=== PATIENT | male | born 1995 | race Hispanic/Latino ===

== ENCOUNTER 2017-02-28 09:49 | Emergency (ER) | payer OTHER ==
[~2017-02-28] VITALS: Ht 172.7 cm; Wt 71.9 kg
[2017-02-28] MEDS ORDERED: MOTRIN600 MG PO (11:24)
[2017-02-28 11:48] VITALS: BP 121/73
== END 2017-02-28 11:49 | disposition home or self-care (01) ==
LOC: EME 09:49
PROC: 0HQ0XZZ Repair Scalp Skin, External Approach (ICD-10-PCS; principal; 2017-02-28)
DX: S01.01XA Laceration without foreign body of scalp, initial encounter (principal); W01.198A Fall on same level from slipping, tripping and stumbling with subsequent striking against other object, initial encounter; Z88.0 Allergy status to penicillin; F17.200 Nicotine dependence, unspecified, uncomplicated
CPT/HCPCS: 99281; 99283